=== PATIENT | female | born 1990 | race Caucasian/White ===

== ENCOUNTER 2019-05-24 15:17 | Emergency (ER) | payer MEDICAID, SELFPAY ==
[2019-05-24 16:12] VITALS: BP 134/85; PULSE 94; RESP 16; TEMP 36.9; O2SAT 100; BMI 28.1
--- NOTE | 2019-05-24 16:24 | XRR_ITS ---
PROCEDURE INFORMATION: Exam: XR Left Ankle Exam date and time: 05/24/2019 4:36 PM Age: 28 years old Clinical indication: Injury or trauma; Fall; Initial encounter; Blunt trauma; Ankle; Left; Injury date: 05/24/19; Additional info: Unknown TECHNIQUE: Imaging protocol: XR Left ankle. Views: 3 or more views. COMPARISON: No relevant prior studies available. FINDINGS: Bones/joints: There is avulsion of the medial malleolus and medial corner of the distal tibia and also slightly comminuted transverse fracture of the distal fibula with lateral angulation. There is lateral displacement of the talus and widening of the distal tibial fibular space indicating ligamentous disruption. There also appears to be fracture involving the posterior aspect of the distal tibia. Soft tissues: There is soft tissue swelling both medially and laterally. XR/XR ankle LT min 3V* [id number] IMPRESSION: Trimalleolar fracture of the ankle as described
--- NOTE | 2019-05-24 18:58 | W.ED.FALL ---
HPI - Fall General: Chief Complaint: Fall Stated Complaint: left ankle pain Time Seen by Provider: 05/24/19 18:39 History of Present Illness: MD complaint: fall Onset (ago): hour(s) Fall from: standing Place fall occurred: home Loss of consciousness: None Location of injury - extremities: Left: ankle Severity: severe Severity scale (1-10): 8 Quality: sharp Associated symptoms-after fall: Denies abdominal pain, chest pain or headache(s) Review of Systems Const: Denies: fever, chills or body aches Eyes: Denies: change in vision or blurry vision ENMT: Denies: throat pain or nasal congestion Card: Denies: chest pain or shortness of breath on exertion Resp: Denies: shortness of breath, productive cough or non-productive cough GI: Denies: abdominal pain, nausea or vomiting Musc: Reports: joint pain (left ankle after fall off of skateboard) and joint swelling Skin/Breast: Denies: rash Neuro: Denies: headache Psych: Denies: anxiety or depression Luis/Lymph: Denies: easy bruising PFSH ED PFSH: Statuses (acute, chronic, etc) shown below reflect problem list status as previously entered and may not be historically accurate Social History Smoking and tobacco status: former smoker Female Reproductive History: Date of last menstrual period: 04/07/19 Physical Exam Const: COMMON NORMALS: no apparent distress, average body habitus and oriented x3 HENMT: COMMON NORMALS: normocephalic HEAD & SCALP: normal to inspection and normocephalic FACE & SINUS: normal facial exam Eye: COMMON NORMALS: conjunctivae normal GENERAL EYE: normal appearance of both eyes CONJUNCTIVA: Yes conjunctivae normal Neck/C-Spine: COMMON NORMALS: no JVD Chest: COMMONS NORMALS: inspection of chest normal Resp: COMMON NORMALS: normal respiratory effort and clear to auscultation bilaterally AUSCULTATION: clear to auscultation bilaterally Cardio: COMMON NORMALS: no JVD, regular rate and regular rhythm RATE: regular rate RHYTHM: regular rhythm GI: COMMON NORMALS: normal to inspection, nondistended, normoactive bowel sounds Extremity: COMMON NORMALS: normal to inspection and full ROM LEFT LOWER EXTREMITY: Yes ankle joint Left ankle: Yes inspection (swelling), Yes palpation (painful), Yes ROM (decreased) and Yes neurovascular exam (normal) EXTREMITY IMAGE (FRONT): 1. Neuro: COMMON NORMALS: oriented x3 Course Vital Signs: Vital signs: Vital Signs Temperature 98.5 F 05/24/19 16:12 Pulse Rate 94 05/24/19 16:12 Respiratory Rate 16 05/24/19 16:12 Blood Pressure 134/85 05/24/19 16:12 Pulse Oximetry 100 05/24/19 16:12 Discharge Plan Discharge Patient Disposition: Home, Self-Care Clinical Impression: Ankle fracture, bimalleolar, closed Condition: Stable Prescriptions: No Action clonazepam 0.5 mg Tablet,Disintegrating 0.5 mg PO TID RF: 0 fluoxetine 60 mg Tablet 60 mg PO DAILY RF: 0 Discharge Activity: Use walker/crutches as instructed Patient Instructions: Ankle Fracture (ED) Coding Level of Care Code ED Funeral Home Assistant for Ramon Joaquin
[2019-05-24] MEDS: HYDROcodone-acetaminophen 7.5-325 mg Tablet 1 TAB PO (19:30)
[2019-05-24] MEDS: HYDROcodone-acetaminophen 5-325 mg Tablet 2 TAB PO (19:46)
[2019-05-24 19:54] VITALS: BP 132/81; PULSE 92; RESP 18; O2SAT 97
--- NOTE | 2019-05-25 14:35 | DCPLANNER ---
sous chef kitchen manager had message to schedule a follow up appointment for patient with ortho. sous chef kitchen manager called the ortho clinic, spoke with Pat, gave clinic patients information. sous chef kitchen manager was told that patients information would be printed and reviewed. Clinic will call rehabilitation caseworker with appointment information.
--- NOTE | 2019-05-25 14:37 | DCPLANNER ---
processing manager spoke with Pat, a followup appointment is scheduled for May at 2:[address] Stephen, patient is aware of appointment.
--- NOTE | 2019-05-31 15:58 | DCPLANNER ---
Patient attended appointment scheduled for 06.12.19 with ortho.
== END 2019-05-24 19:55 | disposition home or self-care (01) ==
PROVIDERS: Emergency Provider Nurse Practitioner Family
DX: S82.842A Displaced bimalleolar fracture of left lower leg, initial encounter for closed fracture (principal); W19.XXXA Unspecified fall, initial encounter; Y92.009 Unspecified place in unspecified non-institutional (private) residence as the place of occurrence of the external cause; Z87.891 Personal history of nicotine dependence
CPT/HCPCS: 73610; 99283; E0114

== ENCOUNTER → 2019-05-25 14:33 | Outpatient (BNVA) | payer MEDICAID, SELFPAY | PROVIDERS: PCP Specialist; Visit Provider Specialist | DX: S82.842A Displaced bimalleolar fracture of left lower leg, initial encounter for closed fracture (principal); X58.XXXA Exposure to other specified factors, initial encounter | CPT/HCPCS: 73610 ==

== ENCOUNTER 2019-05-26 06:44 | Day surgery (SDC) | payer MEDICAID, SELFPAY ==
[2019-05-25 17:32] VITALS: BMI 43.0
[2019-05-26] VITALS (16 sets, daily range): BP systolic 94–138; BP diastolic 68–92; PULSE 103–118; RESP 14–19; TEMP 36.3–36.8; O2SAT 92–100
--- NOTE | 2019-05-26 | SCC_ITS ---
Procedure Done: open reduction internal fixation left trimalleolar ankle fracture 194.1 seconds of fluoroscopic guidance, for a cumulative dose of 5.47 mGy, was provided to Dr. Stephen by the radiology department. C-arm images of the LEFT ankle were saved for the patient's permanent record. [facility]ITAL[facility]
--- NOTE | 2019-05-26 | XR_ITS ---
WS: [id number] C-ARM RADIOGRAPHS LEFT ANKLE; 3 IMAGES HISTORY: ORIF ANKLE COMPARISON: 2019 2 cortical screws stabilize the medial malleolus fracture now in good alignment. Plate and screw fixa tion of the distal fibular fracture now in good alignment. XR/XR ankle LT 2V [id number] IMPRESSION: Bimalleolar ORIF stabilizing fractures in good alignment.
[2019-05-26 07:07] LABS: OR HCG Qualitative Urine Negative (Negative)
[2019-05-26] MEDS: CELEcoxib 200 mg Capsule 400 MG PO (07:39)
[2019-05-26] MEDS: sodium chloride 0.9% 1,000 ML 30 ML IV (08:00)
--- NOTE | 2019-05-26 08:01 | ANES.PREANES ---
Pre-Anesthetic Assessment Pre-Anesthetic Assessment: Height/Weight: Height 1.52 m Weight 99.79 kg Temp Pulse Resp BP Pulse Ox 97.9 F 111 H 18 138/82 97 05/26/19 07:04 05/26/19 07:04 05/26/19 07:04 05/26/19 07:04 05/26/19 07:04 Proposed Procedure: Operation Date: 05/26/19 08:30 Proposed Procedures [place] [id number], [id number](Left) - Justine Stephen MD Last intake: Intake Last Liquid Date 05/26/19 Last Liquid Time 06:00 Last Solid Date 05/25/19 Last Solid Time 20:00 Social: Social History: No alcohol and No tobacco Exam: Pre-Anes Outpt Exam: alert, oriented x 3, clear to auscultation bilaterally and regular rate & rhythm Airway: Submandibular: WNL Cervical ROM: WNL MP: 1 Dentition: Full History/ROS: No significant history except as noted Anesthetic Plan: ASA status: II Anesthesia: Anesthesia Evaluation, General and Regional (specify below) (popliteal) Other: family history of MH Risk of > 500 ml blood loss (7ml/kg in children): No PFSH Anesthesia PFSH: Surgical History (Updated 05/25/19 @ 16:50 by Justine Stephen MD) History of appendectomy (Acute) Social History Smoking and tobacco status: former smoker Female Reproductive History: Date of last menstrual period: 04/07/19 Data Anesthesia Labs: Other Labs: Laboratory Results - last 48 hr 05/26/19 06:53 Urine HCG, Qual Negative Cardiac Studies: No Data to Display
[2019-05-26] MEDS: midazolam 1 mg/mL INJ 2 mL 2 MG IVP (08:22)
--- NOTE | 2019-05-26 08:31 | ANES.PROC ---
Anesthesia Procedures Procedure/Date: 05/26/19 Procedure Narrative: left popliteal Nerve Block ^: Nerve Block 1: Main Anesthesia: general anesthesia Time Out Performed: Yes Consent: requested by attending/covering physician, from patient, risks and benefits reviewed and patient agrees to proceed Nerve block location: popliteal Anesthetic Used: ropivicaine 0.5% Amount of anesthesia used (mL): 30 Ultrasound used to: recognize landmarks Nerve Stimulator Used?: Yes Interscalene/Femoral BLK: 4 stimuplex 21 g needle used for position and inplane approach Injection: neg aspiration of heme Patient Tolerated Procedure: well Complications: none
--- NOTE | 2019-05-26 08:53 | PM.HPUD ---
H&P update H&P Update: DATE OF SURGERY/PROCEDURE: 05/26/19 DATE H&P PERFORMED: 05/25/19 H&P UPDATE INFORMATION: H&P completed within last 30 days, No changes to prior documentation and H&P is in [facility] EMR on date indicated PREOP DIAGNOSIS: Left Bimalleolar Ankle Fracture PLANNED PROCEDURE: Operation Date: 05/26/19 08:30 Proposed Procedures [place] [id number], [id number](Left) - Justine Stephen MD Full H&P Medications/Allergies: Current Medications: Current Medications Generic Name Dose Route Start Last Admin Trade Name Freq PRN Reason Stop Dose Admin Fentanyl 50 mcg 05/26/19 06:53 05/26/19 08:35 Sublimaze IVP 05/27/19 06:53 50 mcg Q5M PRN Administration Pain level 6-10 P ACU Phase I Perinent History: Social History: Social History Smoking and tobacco status: former smoker
--- NOTE | 2019-05-26 09:01 | PC.NURSE ---
0845 PT BROUGHT TO ROOM, PLACED ON OR TABLE WITH ASSISTANCE OF STAFF, WARM BLANKETS APPLIED, SECURED WITH SAFETY STRAP.
[2019-05-26] MEDS: ceFAZolin 1,000 mg SDV 1000 MG IRRIGATION (09:16)
--- NOTE | 2019-05-26 10:37 | PC.NURSE ---
1037 PT FAMILY (LES) NOTIFIED OF PTS PROGRESS.
[2019-05-26] MEDS: fentaNYL 50 mcg/mL INJ 2mL IVP ×2 (11:35→11:40)
--- NOTE | 2019-05-26 12:09 | PM.OP ---
Operative Report Post-Operative Note: Date of procedure: 05/26/19 Preop Diagnosis: left bimalleolar ankle fracture Post-op diagnosis: other (left trimalleolar ankle fracture) Post-op Findings: trimalleolar fracture Procedure Done: open reduction internal fixation left trimalleolar ankle fracture utilizing a lateral 6-hole fibular plate with 2 medial headless screws Specimens removed/disposition: none Pathology: none sent Surgeon: Justine Stephen Anesthesia: general (per LMA) and other (regional block per anesthesia) Estimated blood loss (mL): 10 Tourniquet time (min): 120 IV fluids (mL): 1,000 Urine output (mL): 0 Complications: none Findings: very comminuted displaced trimalleolar ankle fracture with plastic deformity Condition: stable Disposition: PACU (then home) Operative Report: Brief History: This 28-year-old woman presented to my office yesterday after falling from a skateboard and being seen in the emergency department. The patient was noted to have findings consistent with a bimalleolar ankle fracture, but she was in the splint at the time of her x-rays. While in my office, the patient was consented for surgical intervention. Risks and competitions were discussed with her. She agreed to proceed. Procedure: Patient was seen in the preoperative holding area and leg was marked. Patient was brought to the operating theater and placed on the operating room table. After undergoing adequate general per LMA anesthesia with regional block, the patient's left lower extremity was prepped and draped in usual fashion utilizing DuraPrep. The leg was draped free. Fluoroscopy was used throughout the surgical procedure. We did have a tourniquet high on the left lower extremity. This was elevated to 250 mmHg and total tourniquet time was 120 minutes. Tourniquet elevation followed exsanguination of the leg. A surgical pause was performed. At the time of the surgical pause we identified the site and side of surgery as well as the patient's identity and availability of equipment. We also confirmed appropriate administration of IV antibiotics, Ancef 2 g. Following the above, an incision was made centering over the patient's lateral fibular fracture. The incision was continued proximally distally as necessary to allow access to the fracture. We were able to reduce the fracture anatomically, but it was noted to be significantly comminuted with plastic deformity. Reduction was very difficult. This was held with multiple clamps while we chose a plate to appropriately fit the patient's lateral malleolar fracture allowing at least 6 cortices proximal to the most proximal aspect of the comminution. The [place] 6-hole lateral fibular plate was attached with standard technique. We used a combination of locking as well as nonlocking screws. Once the plate was appropriately attached, we irrigated the wound. We then closed the wound with 0 Vicryl in the fascial tissues, 2-0 Monocryl in the subcutaneous tissues, and the skin was closed with skin lisa. Attention was then directed to the medial aspect of the ankle. Once again, we used fluoroscopy to determine the appropriate level of the incision as well as palpation over the fracture. An incision was made over the site of the fracture. We were then able to reduce the fracture and hold with a clamp after removal of interposed soft tissue. Two guidewires were placed in appropriate position as visualized in AP and lateral planes. We were then able to place cannulated screws over the guidewires to hold the medial malleolus nicely reduced. Throughout the surgical procedure and at the conclusion of the procedure we did use fluoroscopy. Fluoroscopy was utilized to determine appropriate positioning of the plate as well as the fractures. At the conclusion we did obtain AP and lateral images demonstrating the fracture was anatomically reduced. The posterior malleolar fracture was visualized during the operative procedure, but this was a small fragment which did not require fixation. The medial incision was closed with a combination of 0 Vicryl deep and 2-0 Monocryl in the subcutaneous tissues. The skin was then closed with skin lisa. Sterile dressing was placed consisting of Xeroform gauze, 4 x 4's, sterile soft roll and an Mickey wrap. The patient was placed in a Cam Walker boot and is to remain nonweightbearing. The procedure was well tolerated without complication. Tourniquet time was 120 minutes at 250 mmHg. The patient will be discharged home to follow-up in my office as scheduled. Coding Level of Care Code Acute Stewardess Supervisor for Ramon Joaquin
--- NOTE | 2019-05-26 12:26 | SUR.PHASEI ---
1150 PT C/O 10/10 PAIN, FACES /10, VS WITHIN NORMAL LIMITS, PT RESTING WITH EYES CLOSED
--- NOTE | 2019-05-26 12:28 | SUR.PHASEI ---
1210 PT C/O 10/10 PAIN, FACES 4/10, VS WITHIN NORMAL LIMITS, PT RESTING WITH EYES CLOSED
--- NOTE | 2019-05-26 12:33 | SUR.PHASEI ---
1135 PT HAS SENSATION/MOVEMENT TO L. TOES, CAP REFILL <3 SEC
[2019-05-26] MEDS: oxyCODONE-APAP 5-325 mg Tablet 1 TAB PO (12:50)
[2019-05-26] MEDS: HYDROmorphone 1 mg/mL INJ 1 mL 2 MG IVP (14:10)
[2019-05-26] MEDS: ketorolac 30 mg/mL INJ IM (14:24)
--- NOTE | 2019-05-26 14:45 | ANES.PROC ---
Anesthesia Procedures Procedure/Date: 05/26/19 Nerve Block ^: Nerve Block 2: Main Anesthesia: general anesthesia Time Out Performed: Yes Consent: requested by attending/covering physician, from patient and risks and benefits reviewed Nerve block location: other (saphenous) Anesthesia monitors applied: pulse oximetry, EKG and BP cuff Nerve block position: semi sitting Anesthetic Used: ropivicaine 0.5% Amount of anesthesia used (mL): 20 Nerve Stimulator Used?: No Interscalene/Femoral BLK: 2 stimuplex 22 g needle used for position and inplane approach Injection: neg aspiration of heme Patient Tolerated Procedure: well and no complications
== END 2019-05-26 15:50 | disposition home or self-care (01) ==
PROVIDERS: PCP Specialist; Visit Provider Specialist
PROC: (CPT 27822; principal; 2019-05-26 08:10)
DX: S82.852A Displaced trimalleolar fracture of left lower leg, initial encounter for closed fracture (principal); X58.XXXA Exposure to other specified factors, initial encounter; Z87.891 Personal history of nicotine dependence
CPT/HCPCS: 27822; 73600; 76000; 84703; 96374; 96375; 99221; C1713; J0131; J0690; J1100; J1170; J1885; J2001; J2250; J2405; J2704; J2795; J3010; J3490; J7030

== ENCOUNTER → 2019-06-08 08:57 | Outpatient (BNVA) | payer MEDICAID, SELFPAY | PROVIDERS: PCP Family Medicine; Visit Provider Specialist | DX: Z48.89 Encounter for other specified surgical aftercare (principal); S82.842A Displaced bimalleolar fracture of left lower leg, initial encounter for closed fracture; X58.XXXA Exposure to other specified factors, initial encounter | CPT/HCPCS: 73610 ==

== ENCOUNTER → 2019-06-16 14:07 | Outpatient (BNVA) | payer MEDICAID, SELFPAY | PROVIDERS: PCP Family Medicine; Referring Provider Family Medicine; Visit Provider Nurse Practitioner Family | DX: J03.90 Acute tonsillitis, unspecified (principal) | CPT/HCPCS: 87081; 87804; 87880 ==

== ENCOUNTER → 2019-06-21 14:18 | Outpatient (BNVA) | payer MEDICAID, SELFPAY | PROVIDERS: PCP Family Medicine; Visit Provider Specialist | DX: Z48.89 Encounter for other specified surgical aftercare (principal); S82.852A Displaced trimalleolar fracture of left lower leg, initial encounter for closed fracture; X58.XXXA Exposure to other specified factors, initial encounter | CPT/HCPCS: 73610 ==

== ENCOUNTER 2019-06-29 12:27 | Outpatient (RCR) | payer SELFPAY | END 2019-07-22 23:59 | disposition home or self-care (01) | LOC: SPT 12:27 | PROVIDERS: PCP Electrodiagnostic Medicine; Referring Provider Specialist; Visit Provider Specialist | DX: Z47.89 Encounter for other orthopedic aftercare (principal); S82.92XS Unspecified fracture of left lower leg, sequela; X58.XXXS Exposure to other specified factors, sequela; M25.572 Pain in left ankle and joints of left foot | CPT/HCPCS: 97110; 97140; 97161; 97530 ==

== ENCOUNTER → 2019-07-17 10:23 | Outpatient (BNVA) | payer SELFPAY | PROVIDERS: PCP Electrodiagnostic Medicine; Visit Provider Specialist | DX: Z48.89 Encounter for other specified surgical aftercare (principal); S82.852A Displaced trimalleolar fracture of left lower leg, initial encounter for closed fracture; X58.XXXA Exposure to other specified factors, initial encounter; Z87.81 Personal history of (healed) traumatic fracture; Z98.890 Other specified postprocedural states | CPT/HCPCS: 73610 ==

== ENCOUNTER 2019-07-17 15:11 | Outpatient (CLI) | payer SELFPAY | END 2019-07-17 15:12 | disposition home or self-care (01) | LOC: SPT 15:11 | PROVIDERS: PCP Electrodiagnostic Medicine; Visit Provider Specialist | DX: Z46.89 Encounter for fitting and adjustment of other specified devices (principal) | CPT/HCPCS: L1902 ==

== ENCOUNTER 2019-07-23 06:00 | Outpatient (RCR) | payer SELFPAY | END 2019-08-22 23:59 | disposition home or self-care (01) | LOC: SPT 06:00 | PROVIDERS: Family Provider Electrodiagnostic Medicine; PCP Electrodiagnostic Medicine; Referring Provider Specialist; Visit Provider Specialist | DX: Z98.890 Other specified postprocedural states (principal); S82.852D Displaced trimalleolar fracture of left lower leg, subsequent encounter for closed fracture with routine healing; X58.XXXD Exposure to other specified factors, subsequent encounter | CPT/HCPCS: 97110; 97140; 97530 ==

== ENCOUNTER 2019-08-02 14:48 | Outpatient (CLI) | payer SELFPAY ==
--- NOTE | 2019-08-02 14:52 | US_ITS ---
WS: [id number] Pelvic ultrasound, 08/02/2019 Clinical Data: ABNORMAL WEIGHT GAIN/SECONDARY AMENORRHEA Comparison: None. Findings: The uterus measures 7.6 cm x 6.3 cm x 4.0 cm. The endometrium is 0.8 cm. No intrauterine or abnormal intrauterine mass is seen. The left ovary measures 4.0 cm x 3.2 cm x 1.6 cm with small cysts. The right ovary measures 3.8 cm x 1.7 cm x 3.3 cm with small cysts. US/US pelvic with transvaginal Impression: Negative pelvic ultrasound
== END 2019-08-02 14:49 | disposition home or self-care (01) ==
LOC: US 14:49
PROVIDERS: Family Provider Electrodiagnostic Medicine; PCP Electrodiagnostic Medicine; Visit Provider Electrodiagnostic Medicine
DX: N91.1 Secondary amenorrhea (principal); R63.5 Abnormal weight gain
CPT/HCPCS: 73610; 76830; 76856

== ENCOUNTER 2019-08-23 06:00 | Outpatient (RCR) | payer SELFPAY | END 2019-09-21 23:59 | disposition home or self-care (01) | LOC: SPT 06:00 | PROVIDERS: Family Provider Electrodiagnostic Medicine; PCP Electrodiagnostic Medicine; Referring Provider Specialist; Visit Provider Specialist | DX: S82.852D Displaced trimalleolar fracture of left lower leg, subsequent encounter for closed fracture with routine healing (principal); X58.XXXD Exposure to other specified factors, subsequent encounter; Z98.890 Other specified postprocedural states | CPT/HCPCS: 97110; 97112; 97140; 97164; 97530 ==

== ENCOUNTER 2019-09-22 06:00 | Outpatient (RCR) | payer SELFPAY | END 2019-10-22 23:59 | disposition home or self-care (01) | LOC: SPT 06:00 | PROVIDERS: PCP Electrodiagnostic Medicine; Referring Provider Specialist; Visit Provider Specialist | DX: Z98.890 Other specified postprocedural states (principal); S82.852D Displaced trimalleolar fracture of left lower leg, subsequent encounter for closed fracture with routine healing; X58.XXXD Exposure to other specified factors, subsequent encounter | CPT/HCPCS: 97110; 97140 ==

== ENCOUNTER 2019-11-20 17:30 | Outpatient (CLI) | payer BC, SELFPAY ==
[2019-11-20 18:39] LABS: Prolactin 19.87 ng/mL (4.8-23.3)
== END 2019-11-20 17:31 | disposition home or self-care (01) ==
LOC: LAB 17:33
PROVIDERS: PCP Nurse Practitioner Family; Visit Provider Nurse Practitioner Family
DX: H05.242 Constant exophthalmos, left eye (principal)
CPT/HCPCS: 36415; 84146

== ENCOUNTER → 2019-12-01 14:24 | Outpatient (BNVA) | payer OTHER, BC, SELFPAY | PROVIDERS: PCP Nurse Practitioner Family; Visit Provider Nurse Practitioner Family | DX: M25.572 Pain in left ankle and joints of left foot (principal) | CPT/HCPCS: 73610 ==

== ENCOUNTER → 2019-12-26 07:42 | Outpatient (BNVA) | payer SELFPAY | PROVIDERS: PCP Nurse Practitioner Family; Visit Provider Psychiatry & Neurology Psychiatry | DX: F41.1 Generalized anxiety disorder (principal); Z03.89 Encounter for observation for other suspected diseases and conditions ruled out; Z79.899 Other long term (current) drug therapy; R45.86 Emotional lability; F31.81 Bipolar II disorder; F43.12 Post-traumatic stress disorder, chronic | CPT/HCPCS: 84443; 99214 ==

== ENCOUNTER → 2020-02-06 15:11 | Outpatient (BNVA) | payer OTHER, SELFPAY | PROVIDERS: PCP Nurse Practitioner Family; Visit Provider Psychiatry & Neurology Psychiatry | DX: F41.1 Generalized anxiety disorder (principal); Z03.89 Encounter for observation for other suspected diseases and conditions ruled out; Z79.899 Other long term (current) drug therapy; R45.86 Emotional lability; F31.81 Bipolar II disorder | CPT/HCPCS: 80048; 80061; 83036; 85025 ==

== ENCOUNTER 2020-02-18 08:51 | Emergency (ER) | payer SELFPAY ==
[2020-02-18 08:59] VITALS: BP 132/89; PULSE 111; RESP 18; TEMP 36.6; O2SAT 97; BMI 43.0
--- NOTE | 2020-02-18 09:26 | ED_ITS ---
HPI - URI/Sore Throat General: Chief Complaint: Upper Respiratory Infection Stated Complaint: cough, sore throat, vomiting Time Seen by Provider: 02/18/20 09:04 History of Present Illness: HPI Narrative: 29-year-old female comes coming in cough and sore throat for the last 4 days vomited with basically mucus production no hemoptysis. She has not had any fever. She has felt mildly short of breath at times. Denies diarrhea. No abdominal pain or headaches, mild myalgias Associated symptoms: Reports congestion, cough, myalgias and sore throat; Deny abdominal pain, change in voice, chills, chest pain, diarrhea, epistaxis, ear or mastoid pain, fever(s), headache(s), nasal congestion, nausea, rash, rhinorrhea, short of breath, sinus pain, stiffness or vomiting Treatments prior to arrival: none Review of Systems Const: Denies: fever(s) or chills ENMT: Denies: ear or mastoid pain, nasal congestion, epistaxis or sinus pain Card: Denies: chest pain Resp: Denies: dyspnea, productive cough or non-productive cough GI: Denies: abdominal pain, nausea, vomiting or diarrhea : Denies: flank pain, difficulty voiding, dysuria, urinary frequency or urinary urgency Skin/Breast: Denies: rash or pruritus Neuro: Denies: headache(s) [facility] ED PFSH: Medical History Displaced trimalleolar fracture of left ankle Encounter for observation for other suspected diseases and conditions ruled out Other skilled nursing (current) drug therapy Surgical History History of appendectomy Status post ORIF of fracture of ankle Social History Smoking and tobacco status: former smoker Quit status (tobacco): has quit using tobacco Year quit tobacco: 07/2019 Former quit date comment: social smoker Second hand smoke exposure: No Alcohol intake: current Alcohol intake frequency: holidays/special occasions only Substance/Drug Use: never Female Reproductive History: Date of last menstrual period: 02/11/20 Physical Exam Const: COMMON NORMALS: average body habitus, patient oriented x3 and alert GENERAL APPEARANCE: cooperative, comfortable, well kempt and well developed NUTRITIONAL APPEARANCE: obese ORIENTATION/CONSCIOUSNESS: Yes awake, Yes oriented to person and Yes oriented to place HENMT: COMMON NORMALS: normocephalic, atraumatic, EAC's normal and TM's normal bilaterally HEAD & SCALP: normocephalic and atraumatic EXTERNAL AUDITORY CANAL: EAC's normal TYMPANIC MEMBRANE: TM's normal bilaterally THROAT: posterior oropharynx abnormal cobblestoning and erythema Eye: COMMON NORMALS: Equal, round and reactive pupils present, EOMs intact bilaterally, conjunctivae normal and no scleral icterus CONJUNCTIVA: Yes conjunctivae normal PUPIL: Yes Equal, round and reactive pupils present Neck/C-Spine: COMMON NORMALS: full ROM, no lymphadenopathy, supple, no meningeal signs and Thyroid normal THYROID: Thyroid normal and asymmetrical Lymph: LYMPHATIC: no lymphadenopathy noted Resp: COMMON NORMALS: normal respiratory effort, No retractions, No use of accessory muscles and clear to auscultation bilaterally AUSCULTATION: clear to auscultation bilaterally Cardio: COMMON NORMALS: regular rate and regular rhythm RATE: regular rate RHYTHM: regular rhythm HEART SOUNDS: no murmurs GI: COMMON NORMALS: Normal to inspection, nondistended, normoactive bowel sounds present, Soft to palpation and No hepatosplenomegaly present PALPATION: Yes Soft to palpation and Yes No hepatosplenomegaly present : COMMON NORMALS: Yes no CVA tenderness BLADDER/KIDNEY EXAM: Yes no CVA tenderness Back/Pelvis: COMMON NORMALS: no CVA tenderness LUMBAR SPINE/LOWER BACK: Yes normal to inspection Extremity: COMMON NORMALS: no clubbing, cyanosis or edema, no calf tenderness and no pedal edema Neuro: COMMON NORMALS: patient oriented x3 SENSORIUM/ORIENTATION: Yes alert, Yes oriented to person and Yes oriented to place MENINGEAL SIGNS: Yes no meningeal signs Psych: APPEARANCE: Yes well kempt Skin: COMMON NORMALS: no rashes or lesions noted and turgor normal GENERAL SKIN EXAM: no rashes or lesions noted and turgor normal Course Vital Signs: Vital signs: Vital Signs Temperature 97.9 F 02/18/20 08:59 Pulse Rate 111 H 02/18/20 08:59 Respiratory Rate 18 02/18/20 08:59 Blood Pressure 132/89 02/18/20 08:59 Pulse Oximetry 97 02/18/20 08:59 MDM - URI/Sore Throat MDM Narrative: Medical decision making narrative: Viral pharyngitis on exam rapid strep is negative. We are awaiting the COVID swab will go ahead and discharge her home recommend self-isolation until the results are available if has worsening symptoms return Lab Data: Labs: Lab Results 02/18/20 Range/Units 09:38 Group A Strep Rapi d Negative (Negative) Discharge Plan Discharge Patient Disposition: Home Clinical Impression: Pharyngitis Condition: Stable Prescriptions: No Action norgestimate-ethinyl estradiol [Previfem] 0.25-35 mg-mcg tablet 1 tab PO DAILY RF: 0 clonazepam 0.5 mg tablet 0.25 mg PO DAILY PRN (Reason: anxiety) 30 Days Qty: 15 RF: 1 aripiprazole [Abilify] 5 mg tablet 7.5 mg PO .hs 30 Days Qty: 45 RF: 1 fluoxetine 20 mg capsule 60 mg PO DAILY 30 Days Qty: 90 RF: 3 Discharge Orders: Discharge Order (Routine); Ordered 02/18/20 Ordered By: Tigre Lee Referrals: Yomaira Strickland ARNP [Primary Care Provider] - Coding Level of Care Code ED Rim Turning Finisher for Chg Fwd Exam Comprehensive
--- NOTE | 2020-02-18 09:26 | XRR_ITS ---
PROCEDURE INFORMATION: Exam: XR Chest, 1 View Exam date and time: 02/18/2020 9:28 AM Age: 29 years old Clinical indication: Cough TECHNIQUE: Imaging protocol: XR of the chest Views: 1 view. COMPARISON: No relevant prior studies available. FINDINGS: Lungs: Hyperinflation and mild interstitial prominence without acute infiltrate. Pleural space: No pleural effusion. Heart/Mediastinum: No cardiomegaly. Bones/joints: Unremarkable. XR/XR chest 1V portable [id number] IMPRESSION: Hyperinflation and mild interstitial prominence .
[2020-02-18 09:54] LABS: Rapid Strep A Test Negative (Negative)
[2020-02-18 10:26] VITALS: BP 140/75; PULSE 70; RESP 15; O2SAT 98
[2020-02-20 16:13] LABS: Quest SARS-CoV-2 RNA NOT DETECTED (NOT DETECTED)
--- NOTE | 2020-02-21 09:32 | PC.NURSE ---
pt called and informed of her covid results
== END 2020-02-18 10:27 | disposition home or self-care (01) ==
PROVIDERS: Emergency Provider Family Medicine; PCP Nurse Practitioner Family
DX: J02.9 Acute pharyngitis, unspecified (principal); Z87.891 Personal history of nicotine dependence
CPT/HCPCS: 12345; 71045; 87081; 87635; 87880; 99281; 99283

== ENCOUNTER → 2021-03-28 08:07 | Outpatient (BNVA) | payer SELFPAY | PROVIDERS: PCP Nurse Practitioner Family; Visit Provider Internal Medicine | DX: E28.2 Polycystic ovarian syndrome (principal); R63.5 Abnormal weight gain; R79.89 Other specified abnormal findings of blood chemistry; F17.200 Nicotine dependence, unspecified, uncomplicated; Z68.42 Body mass index [BMI] 45.0-49.9, adult | CPT/HCPCS: 99204 ==

== ENCOUNTER → 2021-05-05 09:51 | Outpatient (BNVA) | payer OTHER, SELFPAY | PROVIDERS: PCP Nurse Practitioner Family; Visit Provider Nurse Practitioner Family | DX: Z20.822 Contact with and (suspected) exposure to COVID-19 (principal) | CPT/HCPCS: 87426 ==

== ENCOUNTER → 2021-09-01 09:14 | Outpatient (BNVA) | payer SELFPAY | PROVIDERS: Visit Provider Family Medicine | DX: R05.9 Cough, unspecified (principal); R50.9 Fever, unspecified | CPT/HCPCS: 71046; 87400; 87631; 87635 ==

== ENCOUNTER → 2024-07-25 15:51 | Outpatient (BNVA) | payer MEDICAID, SELFPAY | PROVIDERS: Visit Provider Nurse Practitioner Women's Health | DX: Z01.419 Encounter for gynecological examination (general) (routine) without abnormal findings (principal); R30.0 Dysuria | CPT/HCPCS: 81000; 87624 ==

== ENCOUNTER → 2024-12-05 16:16 | Outpatient (BNVA) | payer SELFPAY | PROVIDERS: Visit Provider Nurse Practitioner | DX: A09 Infectious gastroenteritis and colitis, unspecified (principal) | CPT/HCPCS: 87045; 87427; 87449 ==